=== PATIENT | female | born 1985 ===

== ENCOUNTER 2017-02-20 18:09 | Emergency (ER) | payer OTHER ==
--- NOTE | 2017-02-20 19:18 | C.PDOC ---
History Of Present Illness 31 y/o female presents to ED for evaluation of painless lump on right side of neck present for 1 week. Patient states she looked up her symptoms on the internet and discovered it could be related to Thyroid problem. Patient reports symptoms related to hypo and hyperthyroidism such as losing hair, weight loss, sometimes fatigue but denies fever, chills dysphasia, chest pain, palpitations or any other complaints at this time. Time Seen by Provider: 02/20/17 18:28 Chief Complaint (Nursing): ENT Problem History Per: Patient History/Exam Limitations: no limitations Onset/Duration Of Symptoms: Days Current Symptoms Are (Timing): Still Present Past Medical History Reviewed: Historical Data, Nursing Documentation, Vital Signs Vital Signs: Last Vital Signs Temp 97.9 F 02/20/17 21:12 Pulse 67 02/20/17 21:12 Resp 18 02/20/17 21:12 BP 99/63 L 02/20/17 21:12 Pulse Ox 100 02/20/17 22:21 Family History: States: Unknown Family Hx - Social History Hx Tobacco Use: Yes Hx Alcohol Use: No Hx Substance Use: No - Immunization History Hx Tetanus Toxoid Vaccination: No Hx Influenza Vaccination: Yes Hx Pneumococcal Vaccination: No Review Of Systems Except As Marked, All Systems Reviewed And Found Negative. Constitutional: Negative for: Fever, Chills Cardiovascular: Negative for: Chest Pain, Palpitations Gastrointestinal: Negative for: Nausea, Vomiting, Diarrhea Skin: Negative for: Rash Physical Exam - Physical Exam Appears: Well, Non-toxic, No Acute Distress Skin: Normal Color, Warm, Dry, No Rash Head: Atraumatic, Normacephalic Eye(s): bilateral: Normal Inspection, PERRL, EOMI, left: Other (no proptosis) Ear(s): Bilateral: Normal Nose: Normal Oral Mucosa: Moist Throat: Normal, Other (airway patent) Neck: Normal ROM, Trachea Midline, No Midline Cervical Tenderness, Other ( Palpable round non-tender mass to right anterior neck at the thyroid bone) Lymphatic: No Adenopathy Cardiovascular: Rhythm Regular, No Murmur Respiratory: Normal Breath Sounds, No Accessory Muscle Use, No Rales, No Rhonchi , No Wheezing Gastrointestinal/Abdominal: Soft, No Tenderness, No Guarding, No Rebound Extremity: Normal ROM, No Tenderness, Capillary Refill (<2 seconds), No Deformity, No Swelling Extremity: Bilateral: Atraumatic Pulses: Left Radial: Normal, Right Radial: Normal Neurological/Psych: Oriented x3, Normal Speech, Normal Cognition, Normal Cranial Nerves, Normal Motor, Normal Sensation ED Course And Treatment - Laboratory Results Result Diagrams: 02/20/17 19:20 02/20/17 19:20 O2 Sat by Pulse Oximetry: 100 (RA) Pulse Ox Interpretation: Normal - Other Rad US thyroid X-Ray: Read By Radiologist Interpretation: FINDINGS: Left thyroid lobe: Left thyroid lobe measures 5.4 x 1.8 x 1.2 cm. Left thyroid lobe demonstrates a. complex mass with vascularity asuring 1.3 x 1.0 x 1.0 cm. Right thyroid lobe: Right thyroid lobe shows a heterogeneous mass with solid and cystic features. with rim vascularity, measuring 2.6 x 1.8 x 2.4 cm. Right thyroid lobe measures 5.9 x 1.7 x 1.6 cm. Isthmus: Thyroid isthmus measures 2 mm. No enlarged or calcified nodules. Lymph nodes: Unremarkable. No lymphadenopathy. IMPRESSION: There are bilateral thyroid lobe masses as described, on the right 2.6 cm, on the left 1.3 cm with. internal vascularity. The mass on the right does meet the sonographic criteria for FNA, see below. According to the study of radiologist' s in ultrasound consensus conference statement, ultrasoundguided. FNA or core biopsy is recommended if 1) nodule greater than equal to 1 cm with. microcalcifications; 2) nodule greater than or equal to 1.5 cm and is almost entirely solid or has. coarse calcifications; 3) nodule greater than or equal to 2 cm and is cystic with some solid. components; 4) nodule with substantial growth since prior study. Dictated and Authenticated by: Tayo Kaiser MD Medical Decision Making Medical Decision Makin yo F presents with thyroid nodule noted on physical exam. Plan: - Labs ordered - US neck / thyroid Labs reviewed, TSH is noted to be low, consistent with hyperthyroidism. US results still pending at this time. US results reviewed and d/w the patient in great detail. On re-evaluation, patient is resting comfortably in bed in no acute distress. Patient is speaking in full sentences, no drooling, no trismus, no respiratory distress. Patient informed of the need for her to f/u with endocrinology referral provided in 2-3 days without fail. Disposition Counseled Patient/Family Regarding: Studies Performed, Diagnosis, Need For Followup - Disposition Disposition: HOME/ ROUTINE Disposition Time: 22:19 Condition: STABLE Additional Instructions: Follow up with instructional support services director. See attached sheet for a list of referrals. Instructions: Hyperthyroidism (ED), Thyroid Nodules (ED) Forms: Work Excuse Print Language: MALAY - Clinical Impression Clinical Impression: Hyperthyroidism, Thyroid nodule - PA / [employer] ARCHITECT / Resident Statement MD/DO has reviewed & agrees with the documentation as recorded. - Scribe Statement The provider has reviewed the documentation as recorded by the Leslieibsada Wasserman All medical record entries made by the Riya were at my direction and personally dictated by me. I have reviewed the chart and agree that the record accurately reflects my personal performance of the history, physical exam, medical decision making, and the department course for this patient. I have also personally directed, reviewed, and agree with the discharge instructions and disposition.
[2017-02-20 19:28] LABS: BASO % 0.4 % (0.0-2.0); EOS # 0.2 K/uL (0.0-0.7); EOS % 1.9 % (0.0-4.0); HEMATOCRIT 35.2 % (34.0-47.0); LYMPH # 3.5 K/uL (1.0-4.3); MEAN CELL VOLUME 81.5 fL (81.0-99.0); MEAN CORPUSCULAR HEMOGLOBIN 27.3 pg (27.0-31.0); MEAN CORPUSCULAR HGB CONC 33.4 g/dL (33.0-37.0); MEAN PLATELET VOLUME 9.1 fL (7.2-11.7); MONO # 0.6 K/uL (0.0-0.8); MONO % 6.3 % (0.0-10.0); RED CELL DISTRIBUTION WIDTH 15.3 % (11.5-14.5); WHITE BLOOD COUNT 9.1 K/uL (4.8-10.8)
[2017-02-20 19:38] LABS: CHLORIDE 102 mmol/L (98-107); POTASSIUM 3.9 mmol/L (3.6-5.2); SODIUM 138 mmol/L (132-148)
[2017-02-20 19:40] LABS: BILIRUBIN,TOTAL 0.8 mg/dL (0.2-1.3); GFR AFRICAN-AMERICAN > 60
[2017-02-20 19:41] LABS: ALB/GLOB RATIO 1.1 (1.0-2.1); ALKALINE PHOSPHATASE 61 U/L (38-126); ALT/SGPT 27 U/L (9-52); AST/SGOT 18 U/L (14-36); BLOOD UREA NITROGEN 11 mg/dL (7-17); CARBON DIOXIDE 25 mmol/L (22-30); GLUCOSE,RANDOM 78 mg/dL (65-105); TOTAL PROTEIN 7.6 g/dL (6.3-8.3)
[2017-02-20 19:42] LABS: CALCIUM 8.4 mg/dl (8.6-10.4)
[2017-02-20 20:12] LABS: THYROID STIMULATING HORMONE 0.25 mIU/L (0.46-4.68)
[2017-02-20 21:12] VITALS: BP 99/63; PULSE 67; RESP 18; TEMP 97.9
[2017-02-20 22:16] VITALS: O2SAT 100
--- NOTE | 2017-02-21 12:38 | US ---
Thyroid ultrasound History: Thyroid mass. Comparison: None available. Technique: Real-time sonography was performed through the thyroid gland. Findings: Left lobe: 5.4 x 1.8 x 1.2 centimeters. Heterogeneous echotexture. Increased flow. Complex mass with vascularity noted within the left lobe of the thyroid measuring 1.3 x 1.0 x 1.0 centimeters. Thyroid isthmus measures 2 millimeters. Heterogeneous echotexture. Increased flow. Right lobe: 5.9 x 1.7 x 1.6 centimeters. Heterogeneous echotexture. Increased flow. Complex mass with solid and cystic features as well as rim vascularity measuring 2.6 x 1.8 x 2.4 centimeters. Impression: Bilateral complex thyroid masses as described above; right greater than left. The right thyroid mass measures up to 2.6 centimeters with rim vascularity and the left-sided mass measures up to 1.3 centimeters with internal vascularity. Correlation with FNA biopsy may be helpful if clinically indicated. These findings were preliminarily reported at 9:54 p.m. on 02/20/[address] Tayo Kaiser from [facility].
== END 2017-02-20 22:12 | disposition home or self-care (01) ==
LOC: C.ER 18:09
DX: E05.20 Thyrotoxicosis with toxic multinodular goiter without thyrotoxic crisis or storm (principal)